=== PATIENT | female | born 1995 | race African-American/Black ===

== ENCOUNTER 2018-05-12 14:00 | Emergency (ER) | payer SELFPAY ==
--- NOTE | 2018-05-12 14:22 | ER Document Report ---
ED Psych Disorder / Suicide - General Mode of Arrival: Medic Information source: Patient <FRITZSALVADOR - Last Filed: 05/12/18 14:48> <TOR MADDOX - Last Filed: 05/12/18 22:12> - General Stated Complaint: PSYCH EVAL Time Seen by Provider: 05/12/18 14:09 Notes: 23-year-old female who presents to the emergency department today after taking x15 diphenhydramine 50mg capsules in an attempted suicide. The pill bottle at the bedside contained 32 capsules and there are 17 left. Patient states she took them because she was "trying to kill herself". Patient states she wanted to kill herself because of "life". Patient arrived via EMS after she called the police. Patient states that she called the police "after she took them because she got scared". Patient states that "she still wants to but does not want to by suicide". Patient states she "feels like she is high on a drug" stating that everything seems to be happening slowly and she cannot stop twitching. Patient denies being followed by any psychiatric doctors. Patient denies hallucinations, previous suicide attempts, pain, or being . (SALVADOR HU) - Related Data Allergies/Adverse Reactions: No Known Allergies Allergy (Unverified 05/12/18 15:26) Past Medical History - General Information source: Patient - Social History Smoking Status: Current Every Day Smoker Cigarette use (# per day): Yes Frequency of alcohol use: None Drug Abuse: None Lives with: Family Family History: Reviewed & Not Pertinent <SALVADOR HU - Last Filed: 05/12/18 14:48> Review of Systems - Review of Systems Constitutional: No symptoms reported EENT: No symptoms reported Cardiovascular: No symptoms reported Respiratory: No symptoms reported Gastrointestinal: No symptoms reported Genitourinary: No symptoms reported Female Genitourinary: denies: Musculoskeletal: No symptoms reported Skin: No symptoms reported Hematologic/Lymphatic: No symptoms reported Neurological/Psychological: See HPI, Other - suicide attempt, states "everyone is talking slow". denies: Hallucinations -: Yes All other systems reviewed and negative <SALVADOR HU - Last Filed: 05/12/18 14:48> Physical Exam <SALVADOR HU - Last Filed: 05/12/18 14:48> - Vital signs Vitals: Pulse Ox 100 05/12/18 14:04 - Notes Notes: PHYSICAL EXAM GENERAL: Alert. No acute distress. HEAD: Normocephalic, atraumatic. EYES: Pupils equal, round, and reactive to light. Extraocular movements intact. No nystagmus. ENT: Oral mucosa moist, tongue midline. NECK: Full range of motion. Supple. Trachea midline. LUNGS: Clear to auscultation bilaterally, no wheezes, rales, or rhonchi. No respiratory distress. No tachypnea. Frequently taking deep breaths or sighs. HEART: Intermittent tachycardia, regular rhythm. No murmurs, gallops, or rubs. ABDOMEN: Soft, non-tender. Non-distended. Bowel sounds present in all 4 sha drants. No guarding, rigidity, or rebound. EXTREMITIES: Moves all 4 extremities spontaneously. No edema, radial and dorsalis pedis pulses 2/4 bilaterally. No cyanosis. NEUROLOGICAL: Alert and oriented x3. Normal speech. PSYCH: Mild psychomotor agitation. Distractible. Distrustful. Occasionally a ppears to be looking at things that are not there. SKIN: Warm, diaphoretic, normal turgor. No rashes or lesions noted. (SALVADOR HU) Course - Laboratory Result Diagrams: 05/12/18 14:45 05/12/18 14:45 <TOR AMDDOX - Last Filed: 05/12/18 22:12> - Re-evaluation Re-evalutation: 05/12/18 20:05 CBC unremarkable, CMP grossly unremarkable with the exception of a low glucose of 42, patient has been fed and her blood sugars been staying stable at 63 than 59 and 65, there is no evidence of acute overdose at this time, test is negative, urinalysis is unremarkable, alcohol level is 22, salicylates and acetaminophen are all undetectable, patient was interviewed by behavioral health team and she told the peer health team that she had lied about her Benadryl overdose, she stated that she thought saying that she was suicidal was the only way that she could get help with resources. Patient states that some of her utilities have been turned off and she was hoping that she could get help here to get them turned back on. Patient was given multiple resources by our behavioral health team. Patient does not meet acute IVC criteria by the [facility] statute. Patient will be discharged to home. She has been given multiple outpatient resources for both behavioral health and homeless coalition (TOR MADDOX) - Vital Signs Vital signs: Temp Pulse Resp BP Pulse Ox 99.3 F 16 126/79 H 99 05/12/18 20:34 05/12/18 20:34 05/12/18 20:34 05/12/18 20:34 - Laboratory Laboratory results interpreted by me: 05/12/18 05/12/18 05/12/18 14:45 16:36 18:05 Potassium 3.5 L Chloride 111 H Glucose 42 L POC Glucose 63 L 59 L Alkaline Phosphatase 37 L Salicylates < 1.0 L Acetaminophen < 10 L 05/12/18 19:25 Potassium Chloride Glucose POC Glucose 65 L Alkaline Phosphatase Salicylates Acetaminophen - EKG Interpretation by Me Additional EKG results interpreted by me: 05/12/18 20:05 EKG shows sinus tachycardia at a rate of 112, significant baseline artifact as the patient would not stop moving during the EKG, normal R wave progression, cannot interpret leads to 3 or aVF, slight conduction delay with a QRS of 134, no AV block, no evidence of STEMI per my interpretation. (TOR MADDOX) Discharge <SALVADOR HU - Last Filed: 05/12/18 14:48> <TOR MADDOX - Last Filed: 05/12/18 22:12> - Discharge Clinical Impression: Borderline personality disorder in adult, Hypoglycemia Condition: Stable Disposition: HOME, SELF-CARE Additional Instructions: Do not skip meals. Please follow-up with the resources we gave you. Referrals: [facility] [Provider Group] - Follow up as needed Scribe Attestation: 05/12/18 22:12 I personally performed the services described in the documentation, reviewed and edited the documentation which was dictated to the scribe in my presence, and it accurately records my words and actions. (TOR MADDOX) Scribe Documentation - Scribe Written by Agusto:: Agusto Larose, 05/12/2018 1457 acting as scribe for :: Richelle <SALVADOR HU - Last Filed: 05/12/18 14:48>
[2018-05-12 14:53] LABS: ABSOLUTE EOSINOPHILS # (AUTO) 0.1 10^3/uL (0.0-0.6); ABSOLUTE LYMPHOCYTES (AUTO) 1.5 10^3/uL (0.5-4.7); ABSOLUTE MONOCYTES (AUTO) 0.5 10^3/uL (0.1-1.4); ABSOLUTE NEUT (AUTO) 2.6 10^3/uL (1.7-8.2); BASOPHILS % (AUTO) 0.5 % (0-2); EOSINOPHILS % (AUTO) 1.2 % (0-6); HEMATOCRIT 38.7 % (36.0-47.0); HEMOGLOBIN 13.1 g/dL (12.0-15.5); LYMPHOCYTES % (AUTO) 30.9 % (13-45); MEAN CORPUSCULAR HEMOGLOBIN 31.5 pg (27.0-33.4); MEAN CORPUSCULAR HGB CONC 33.7 g/dL (32.0-36.0); MEAN CORPUSCULAR VOLUME 94 fl (80-97); PLATELET COUNT 220 10^3/uL (150-450); RED BLOOD COUNT 4.14 10^6/uL (3.72-5.28); RED CELL DISTRIBUTION WIDTH 13.6 % (11.5-14.0); SEGMENTED NEUTROPHILS % (AUTO) 56.4 % (42-78); TOTAL CELLS COUNTED % (AUTO) 100 %; WHITE BLOOD COUNT 4.7 10^3/uL (4.0-10.5)
[2018-05-12 14:57] LABS: APPEARANCE,URINE CLEAR; BILIRUBIN,URINE NEGATIVE (NEGATIVE); COLOR,URINE STRAW; GLUCOSE, URINE NEGATIVE (NEGATIVE); KETONES,URINE NEGATIVE (NEGATIVE); LEUKOCYTE ESTERASE,URINE NEGATIVE (NEGATIVE); NITRITE,URINE NEGATIVE (NEGATIVE); PROTEIN,URINE NEGATIVE (NEGATIVE); URINE SPECIFIC GRAVITY 1.005; UROBILINOGEN,URINE NEGATIVE mg/dL (<2.0)
[2018-05-12] MEDS: NORMAL SALINE 1000 ML 1,000 ML IV PRN ×2 (14:59→15:54)
[2018-05-12 15:11] LABS: ALANINE AMINOTRANSFERASE 21 U/L (9-52); ALBUMIN 4.3 g/dL (3.5-5.0); ALCOHOL 22 mg/dL (NONE DETECTED); ALKALINE PHOSPHATASE 37 U/L (38-126); ANION GAP 7 (5-19); ASPARTATE AMINO TRANSFERASE 26 U/L (14-36); BILIRUBIN,DIRECT 0.1 mg/dL (0.0-0.4); BILIRUBIN,TOTAL 0.6 mg/dL (0.2-1.3); BLOOD UREA NITROGEN 8 mg/dL (7-20); CALCIUM 9.2 mg/dL (8.4-10.2); CARBON DIOXIDE 26 mmol/L (22-30); CHLORIDE 111 mmol/L (98-107); GLUCOSE 42 mg/dL (75-110); POTASSIUM 3.5 mmol/L (3.6-5.0); SODIUM 144.1 mmol/L (137-145); TOTAL PROTEIN 7.3 g/dL (6.3-8.2)
[2018-05-12 15:13] LABS: URINE AMPHETAMINES SCREEN NEGATIVE; URINE BARBITURATES SCREEN NEGATIVE; URINE BENZODIAZEPINES SCREEN NEGATIVE; URINE COCAINE SCREEN NEGATIVE; URINE MARIJUANA (THC) SCREEN NEGATIVE; URINE METHADONE SCREEN NEGATIVE; URINE PHENCYCLIDINE SCREEN NEGATIVE
[2018-05-12 15:13] LABS: ACETAMINOPHEN < 10 ug/mL (10-30); SALICYLATE < 1.0 mg/dL (2.0-20.0)
--- NOTE | 2018-05-12 17:17 | PSYCHOLOGICAL NOTE ---
Psych Note - Psych Note Date seen by psych provider: 05/12/18 Time seen by psych provider: 15:30 Psych Note: Reason for Consult: intentional overdose Patient reports she arrived to [facility] ED via EMS because she "tried to commit suicide." She reports that she took a bunch of sleeping pills and identified them as Benadryl. 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 She states that her phone has been disconnected and the water has been shut off. She disclosed that her daughter lives in [place] it is also depressed about not being able to see her. When asked if the patient wanted to she reports "yes... no... I do not think so I just do not like feeling like this." She discloses that she is the one who called EMS. She discloses diagnosis of borderline personality disorder and depression diagnosed approximately 10 years ago while living in [place]. Clinician was notified patient has not demonstrated any difficulties associated with overdose and is currently watching TV; reporting it is one of her favorite movies to [facility] staff Clinician reevaluated patient When asked patient if she actually took the medication she did admit that she did not reporting that in [place] they will not help you unless you say your suicidal and have done something. She reports that she just wants someone to talk to and has so many financial stressors. Clinician discussed local resource s to assist such as local [employer] with bills, food saeed etc. Patient confirms she does not have thoughts of wanting to hurt herself. Patient is alert and orientated to person, place, time and circumstance. Mood is euthymic with congruent affect. Patient reports intentional overdose however later on confirmed she did not take any. Patient denies homicidal ideation. Delusions are absent behaviors congruent with an intact reality based presentation i.e. organized and linear thought process. Eye contact is fair. Conversational speech is within normal rate, tone and prosody. Intellectual a bility appears to be within the average range. Attention and concentration is good. Insight, judgment, impulse control is fair. No medication recommendations at this time Borderline personality disorder per history provided by patient diagnosed when she lived in [place] [address] (F32.9) unspecified depressive disorder per history provided by patient Impression\\plan: Patient is cleared from acute psychiatric services. Patient does not meet IVC criteria per [place] GS 122C. Patient admits she did not take any Benadryl stating that she said she took the medication because in [place] they would not give assistance unless you said you were suicidal and done something. She denies suicidal ideation. She discloses stress from financial difficulties identifying that her phone has been turned off and her water has been turned off. She reports that she would really like someone to talk to because of her stress. The behavioral health team provided the patient with the homeless [facility] resource guide in addition to the local resource list of providers that which include mobile crisis contact information. Dr. Santoro was consulted and the care and management of this patient; attending physicians in agreement with recommendations and disposition.
--- NOTE | 2018-05-12 17:46 | EKG REPORT ---
SEVERITY:- ABNORMAL ECG - SINUS TACHYCARDIA PAIRED VENTRICULAR PREMATURE COMPLEXES RIGHT ATRIAL ABNORMALITY NONSPECIFIC INTRAVENTRICULAR CONDUCTION DELAY artifacts NOTED REC REPEAT EKG : Confirmed by: Albaro Mckee 12-May-2018 17:45:30
[2018-05-12 20:36] VITALS: BP 126/79
== END 2018-05-12 20:40 | disposition home or self-care (01) ==
LOC: ER 14:00
DX: F60.3 Borderline personality disorder (principal); E16.2 Hypoglycemia, unspecified; F17.210 Nicotine dependence, cigarettes, uncomplicated
CPT/HCPCS: 93005; 99285; 96360; 36415; 82962; 80307 ×4; 84703; 85025; 80053; 81001; 93010; J7030